=== PATIENT | male | born 1965 | race Two or more races ===

== ENCOUNTER 2024-06-27 11:45 | Inpatient (IN) | payer BC, MEDICARE, OTHER ==
[2024-06-28] MEDS ORDERED: MAGNESIUM HYDROXIDE 2,400 MG/30 ML CUP PO PRN (01:29)
[2024-06-28] MEDS ORDERED: MAG HYDROX/AL HYDROX/SIMETH 355 ML BOTTLE PO PRN (01:30)
[2024-06-28] MEDS ORDERED: diazePAM 5 MG TAB ONE ×3 (01:32→21:20)
[2024-06-28] MEDS ORDERED: OLANZapine 10 MG VIAL IM PRN (01:34)
[2024-06-28] MEDS: diazePAM 5 MG TAB PO PRN (02:00)
[2024-06-28] MEDS: OLANZapine 5 MG TAB PO PRN (04:38)
[2024-06-28] MEDS ORDERED: OLANZapine 5 MG TAB ONE ×2 (04:38→23:48)
[2024-06-28] MEDS: ACETAMINOPHEN TAB 325 MG TAB PO PRN (05:06)
[2024-06-28] MEDS ORDERED: ACETAMINOPHEN TAB 325 MG TAB ONE ×4 (05:06→20:10)
[2024-06-28] MEDS ORDERED: ARIPiprazole 10 MG TAB ONE (08:51)
[2024-06-28] MEDS ORDERED: busPIRone HCl 10 MG TAB ONE (08:51)
[2024-06-28] MEDS ORDERED: DULoxetine HCL 60 MG CAPSULE.DR PO ONE (08:52)
[2024-06-28] MEDS: ARIPiprazole 10 MG TAB PO SCH (09:51)
[2024-06-28] MEDS: ATORVASTATIN 10 MG TAB PO SCH (09:51)
[2024-06-28] MEDS: amLODIPine 5 MG TAB PO SCH (09:51)
[2024-06-28] MEDS: busPIRone HCl 10 MG TAB PO SCH (09:52)
[2024-06-28] MEDS: MELOXICAM 7.5 MG TAB PO SCH (09:52)
[2024-06-28] MEDS: LOSARTAN-HCTZ 50-12.5 MG 1 EACH TAB PO SCH (09:52)
[2024-06-28] MEDS: DULoxetine HCL 60 MG CAPSULE.DR PO SCH (09:52)
[2024-06-28] MEDS: METOPROLOL SUCCINATE (ER) 50 MG TAB.ER.24H PO SCH (09:53)
[2024-06-28] MEDS: LOSARTAN 50 MG TAB PO SCH (09:54)
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
[2024-06-29] MEDS ORDERED: ACETAMINOPHEN TAB 325 MG TAB ONE (03:04)
[2024-06-29] MEDS ORDERED: ARIPiprazole 10 MG TAB ONE (09:03)
[2024-06-29] MEDS ORDERED: diazePAM 5 MG TAB ONE (09:03)
--- NOTE | 2024-06-29 13:06 | P.PN ---
Progress Note - Text Progress Note Date: 06/29/24 Interval History: Patient was seen [wandering the hallways] and was directable and agreeable to speak with headline writer. Patient states he is doing great. He is very grandiose when speaking to headline writer, and very difficult to redirect. Patient states he does not need medications, he only needs weed and mushrooms. patient was very grandiose, poor judgment and insight. states that he does not and will not take medications. He is focused on having "millions of dollars" and wanting to pay everyone that has compassion. He makes several delusional statements, stating his plant maintenance worker is in the parking lot, ready to bring the hospital down. At this time patient denies any suicidal or homicidal ideations, intent or plan. Patient denies any auditory, visual hallucinations and denies any paranoia. Patient is refusing medications. Mental Status Exam: General Appearance: Patient appears to be midlly over weight, patient is currently seated in a wheelchair and is able to get around Behavior: Patient is very loud and attention seeking, demanding, difficult to redirect Speech: Patient's speech is fluent and pressured. he is demanding Mood/Affect: Mood is "great" affect is constricted and congruent Suicidality/Homicidality: Patient denies having any suicidal or homicidal ideation intent or plan. Perceptions: Patient denies any visual hallucinations and denies any auditory hallucinations Though content/process: There is evidence of delusional thought content, grandiose, and circumstantial. Memory and concentration: AOX3, grossly intact for the purposes of this session Judgment and insight: Impaired Assessment Bipolar disorder, severe manic episode, with psychotic features Hallucinogenic use disorder using mushrooms cannabis use disorder nicotine dependence Plan: -Patient continues to meet criteria for inpatient psychiatric admission for symptom stabilization and safety. Patient has not signed [adult voluntary form or medication consent, currently waiting for deferral/court date. -Medications: Invega 3mg bid for psychosis, Lithobid 450mg qhs for mood stabilization -When necessary Ativan and Haldol for agitation/aggression. -NRT - [nicotine patch] -SW on board for discharge planning. Encouraged the patient to participate in milieu. Currently awaiting deferral with it technical support specialist and court date.
[2024-06-29] MEDS: PALIPERIDONE 3 MG TAB.ER.24 PO SCH (13:33)
[2024-06-29] MEDS: LITHIUM CARBONATE ER 450 MG TABLET.ER PO SCH (21:59)
--- NOTE | 2024-06-29 23:03 | P.PN ---
Progress Note - Text Progress Note Date: 06/29/24 Attempted to see the patient in the mental health unit. Informed by the MHU RN that the patient is currently very manic and inappropriate for evaluation. Will attempt to see the patient tomorrow.
[2024-06-30] MEDS: NICOTINE 7MG/24HR PATCH TRANSDERM SCH (09:25)
--- NOTE | 2024-06-30 12:35 | P.PN ---
Progress Note - Text Progress Note Date: 06/30/24 Interval History: Patient was seen in his room, and was directable and agreeable to speak with engineering technical writer. Patient states he is doing great. He is continues to be grandiose when speaking to engineering technical writer, and very difficult to redirect. Patient has poor judgment and insight. He is very tangential, and has flight of ideas. 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 At this time patient denies any suicidal or homicidal ideations, intent or plan. Patient denies any auditory, visual hallucinations and denies any paranoia. Patient is refusing some medications. Mental Status Exam: General Appearance: Patient appears to be mildly over weight, patient is currently seated in a wheelchair and is able to get around Behavior: Patient is very loud and attention seeking, demanding, difficult to redirect Speech: Patient's speech is fluent and pressured. he is demanding Mood/Affect: Mood is "great" affect is constricted and congruent Suicidality/Homicidality: Patient denies having any suicidal or homicidal ideation intent or plan. Perceptions: Patient denies any visual hallucinations and denies any auditory hallucinations Though content/process: There is evidence of delusional thought content, grandiose, and circumstantial. Memory and concentration: AOX3, grossly intact for the purposes of this session Judgment and insight: Impaired Assessment Bipolar disorder, severe manic episode, with psychotic features Hallucinogenic use disorder using mushrooms cannabis use disorder nicotine dependence Plan: -Patient continues to meet criteria for inpatient psychiatric admission for symptom stabilization and safety. Patient has not signed adult voluntary form or medication consent, currently waiting for deferral/court date. -Medications: change Invega 3mg qd + 6mg qhs for psychosis, Lithobid 450mg qhs for mood stabilization -When necessary Ativan and Haldol for agitation/aggression. -NRT - [nicotine patch] -SW on board for discharge planning. Encouraged the patient to participate in milieu. Currently awaiting deferral with hot mill worker and court date.
[2024-06-30] MEDS: PALIPERIDONE 6 MG TAB.ER.24 PO SCH (20:58)
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
[2024-07-01] MEDS: PALIPERIDONE 3 MG TAB.ER.24 PO SCH ×2 (08:45→20:15)
--- NOTE | 2024-07-01 12:11 | P.PN ---
Progress Note - Text Progress Note Date: 07/01/24 Interval History: Patient was seen the rogel, and was directable and agreeable to speak with [facility]. Patient states he is doing good, but would be better if he were out of here.Abrasive Grader Helper spoke to patient about the court process. Patient is hard to redirect. He is continues to be grandiose when speaking to investigative writer. Patient has poor judgment and insight. He is very tangential, and has flight of ideas, this is mildly improving. He continues to talk his "80 thousand dollar rig that is out of hock", and sitting in his driveway. Less rambling today, mildly more directable. At this time patient denies any suicidal or homicidal ideations, intent or plan. Patient denies any auditory, visual hallucinations and denies any paranoia. Patient is compliant with medications, and denies any side effects. Mental Status Exam: General Appearance: Patient appears to be mildly over weight, patient is curr ently seated in a wheelchair and is able to get around Behavior: Patient is very loud and attention seeking, demanding, difficult to redirect, improving mildly Speech: Patient's speech is fluent and pressured. he is demanding, improving mildly Mood/Affect: Mood is "great" affect is constricted and congruent Suicidality/Homicidality: Patient denies having any suicidal or homicidal ideation intent or plan. Perceptions: Patient denies any visual hallucinations and denies any auditory hallucinations Though content/process: There is evidence of delusional thought content, grandiose, and circumstantial. Improving mildly. Memory and concentration: AOX3, grossly intact for the purposes of this session Judgment and insight: Impaired Assessment Bipolar disorder, severe manic episode, with psychotic features Hallucinogenic use disorder using mushrooms cannabis use disorder nicotine dependence Plan: -Patient continues to meet criteria for inpatient psychiatric admission for symptom stabilization and safety. Patient has not signed adult voluntary form or medication consent, currently waiting for deferral/court date. -Medications: Increase Invega 3mg qd + 9 mg qhs for psychosis, Lithobid 450mg qhs for mood stabilization -When necessary Ativan and Haldol for agitation/aggression. -NRT - [nicotine patch] -SW on board for discharge planning. Encouraged the patient to participate in milieu. Currently awaiting deferral with trust and estates attorney and court date Court is on 07/08
[2024-07-01] MEDS ORDERED: ACETAMINOPHEN TAB 325 MG TAB ONE (23:00)
[2024-07-01] MEDS ORDERED: OLANZapine 5 MG TAB ONE (23:00)
--- NOTE | 2024-07-02 11:23 | P.PN ---
Progress Note - Text Progress Note Date: 07/02/24 Interval History: Patient was seen today participating in group. He was agreeable to speak to mary silveira today in the in the hallway. He states that he is doing a bit better today, racing thoughts improving mildly since yesterday. 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 Claims that he has been speaking with his and "everything is good". Denies any depression or anxiety denies any side effects at this time. Claims that he still wants to work on sleep and is only sleeping about 4 or 5 hours a night. Less intrusive today. He did defer with his claim attorney. Less rambling today, mildly more directable. At this time patient denies any suicidal or homicidal ideations, intent or plan. Patient denies any auditory, visual hallucinations and denies any paranoia. Patient is compliant with medications, and denies any side effects. Mental Status Exam: General Appearance: Patient appears to be mildly over weight, patient is currently seated in a wheelchair and is able to get around Behavior: Patient is very loud and attention seeking, demanding, difficult to redirect, improving mildly Speech: Patient's speech is fluent and pressured. he is demanding, improving mildly Mood/Affect: Mood is "alright" affect is constricted and congruent, improving mildly Suicidality/Homicidality: Patient denies having any suicidal or homicidal ideation intent or plan. Perceptions: Patient denies any visual hallucinations and denies any auditory hallucinations Though content/process: There is evidence of delusional thought content, grandiose, and circumstantial. Improving mildly. Memory and concentration: AOX3, grossly intact for the purposes of this session Judgment and insight: Impaired, improving mildly Assessment Bipolar disorder, severe manic episode, with psychotic features Hallucinogenic use disorder using mushrooms cannabis use disorder nicotine dependence Plan: -Patient continues to meet criteria for inpatient psychiatric admission for symptom stabilization and safety. Patient has not signed adult voluntary form or medication consent -Medications: Continue Invega 3mg qd + 9 mg qhs for psychosis, increase [place] 300mg bid for mood stabilization. add trazodone 50 mg qhs for sleep/mood -When necessary Ativan and Haldol for agitation/aggression. -NRT - [nicotine patch] -SW on board for discharge planning. Encouraged the patient to participate in milieu. Patient deferred with his claim attorney on 07/01.
[2024-07-02] MEDS: traZODone HCL 50 MG TAB PO SCH (21:14)
[2024-07-02] MEDS: LITHIUM CARBONATE 300 MG CAP PO SCH (21:14)
--- NOTE | 2024-07-03 11:45 | P.PN ---
Progress Note - Text Progress Note Date: 07/03/24 Interval History: Patient was seen today participating in group. He was agreeable to speak to mary silveira today in the in the hallway. Patient continues to be somewhat hyperverbal, difficult to redirect at times during the interview, mildly disorganized thought process. He continues to speak about his money and has several thoughts of being discharged today. He minimizes his need for medications. He is showing mild improvement overall. Denies any depression or anxiety today. Claims that he only slept about 4 hours last night, states that he wants to sleep a bit more. He is denying any changes in his appetite at this time. Less rambling today, mildly more directable. At this time patient denies any suicidal or homicidal ideations, intent or plan. Patient denies any auditory, visual hallucinations and denies any paranoia. Patient is compliant with medications, and denies any side effects. Mental Status Exam: General Appearance: Patient appears to be mildly over weight, patient is currently seated in a wheelchair and is able to get around Behavior: Patient is very loud and attention seeking, less demanding, difficult to redirect, improving mildly Speech: Patient's speech is fluent and pressured. he is demanding, improving mildly Mood/Affect: Mood is "alright" affect is constricted and congruent, improving mildly Suicidality/Homicidality: Patient denies having any suicidal or homicidal ideation intent or plan. Perceptions: Patient denies any visual hallucinations and denies any auditory hallucinations Though content/process: There is evidence of delusional thought content, grandiose, and circumstantial. Improving mildly. Memory and concentration: AOX3, grossly intact for the purposes of this session Judgment and insight: Impaired, improving mildly Assessment Bipolar disorder, severe manic episode, with psychotic features Hallucinogenic use disorder using mushrooms cannabis use disorder nicotine dependence Plan: -Patient continues to meet criteria for inpatient psychiatric admission for symptom stabilization and safety. Patient has not signed adult voluntary form or medication consent -Medications: Invega 3mg qd + 9 mg qhs for psychosis, [place] 300mg bid for mood stabilization, consider increasing over the weekend if needed. increase trazodone 100 mg qhs for sleep/mood -When necessary Ativan and Haldol for agitation/aggression. -NRT - [nicotine patch] -SW on board for discharge planning. Encouraged the patient to participate in milieu. Patient deferred with his finance attorney on 07/01.
[2024-07-03] MEDS: traZODone HCL 100 MG TAB PO SCH (20:45)
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
--- NOTE | 2024-07-05 19:47 | P.PN ---
Progress Note - Text Progress Note Date: 07/05/24 Interval history: Patient was seen in the hallway and was agreeable to step into his room for a visit. When asked he described his mood as "awesome". He shared that he generally feels well and is ready to go home. He did not have any concerns or see the need for ongoing hospitalization. During the course of our conversation he was incorrectly recalling statements regarding plan for him to discharge tomorrow; these were clarified with him. He reports talking with his and and encouraging her to remain "on standby" as he might be able to leave the hospital at any time. He does not feel he has any ongoing need for care. At this time patient denies any suicidal or homicidal ideation, intent, or plan. Denies any auditory or visual hallucinations. Patient denies any side effects from the medications and has been compliant with meds. Mental status exam: General Appearance: Patient appears to be stated age is alert, directable, and cooperative. Behavior: No agitated behavior. Patient is energetic but redirectable Speech: Patient's speech is fluent though somewhat rapid. Mood/Affect: Mood is "awesome", affect is congruent and euthymic. Smiling. Suicidality/Homicidality: Patient denies having any suicidal or homicidal ideation intent or plan. Perceptions: Patient denies any auditory or visual hallucinations. Though content/process: There is no overt evidence of any delusional thought content and thought process is linear and goal-directed. Memory and concentration: AOX3, grossly intact for the purposes of this session Judgment and insight: Questionable, limited awareness of need for ongoing care Assessment/Plan: Continue with current diagnoses: Bipolar disorder, severe, manic episode with psychotic features; hallucinogenic/cannabis/nicotine use disorders Patient continues to meet criteria for inpatient psychiatric admission for symptom stabilization and safety. Deferred on 07/01/24. Patient will be maintained on current psychotropic medication regimen: Invega 3 mg QAM & 9 mg QHS for psychosis, lithium 300 mg BID for mood stabilization. Continue trazodone 100 mg daily. Monitor for medication compliance and for any psychotropic medication side effects. Will continue to monitor ongoing response to treatment. Encouraged participation in milieu.
--- NOTE | 2024-07-06 10:13 | P.PN ---
Progress Note - Text Progress Note Date: 07/06/24 Interval History: Patient was seen today in the hallway. He was agreeable to speak to health underwriter to day. Patient continues to be focused on discharge. He states he has his on standby to come get him. Fibrous Plasterer explained that he will not be discharged today, due to the holiday, and the inability to schedule follow up appointment. He is showing some improvement overall. He is less intrusive. Denies any depression or anxiety. Claims that he had some broken sleep last night, He is denying any c hanges in his appetite at this time. Less rambling today, more directable. At this time patient denies any suicidal or homicidal ideations, intent or plan. Patient denies any auditory, visual hallucinations and denies any paranoia. Patient is compliant with medications, and denies any side effects. Mental Status Exam: General Appearance: Patient appears to be mildly over weight, patient is curre ntly seated in a wheelchair and is able to get around Behavior: Patient is very loud and attention seeking, less demanding, difficult to redirect, improving mildly Speech: Patient's speech is fluent and pressured. he is demanding, improving mildly Mood/Affect: Mood is "real goodt" affect is constricted and congruent, improving mildly Suicidality/Homicidality: Patient denies having any suicidal or homicidal ideation intent or plan. Perceptions: Patient denies any visual hallucinations and denies any auditory hallucinations Though content/process: There is no evidence of delusional thought content, Memory and concentration: AOX3, grossly intact for the purposes of this session Judgment and insight: Impaired, improving mildly Assessment Bipolar disorder, severe manic episode, with psychotic features Hallucinogenic use disorder using mushrooms cannabis use disorder nicotine dependence Plan: -Patient continues to meet criteria for inpatient psychiatric admission for symptom stabilization and safety. Patient has not signed adult voluntary form or medication consent -Medications: Invega 3mg qd + 9 mg qhs for psychosis, [place] 300mg bid for mood stabilization, increase trazodone 150 mg qhs for sleep/mood -When necessary Ativan and Haldol for agitation/aggression. -NRT - [nicotine patch] -SW on board for discharge planning. Encouraged the patient to participate in milieu. Patient deferred with his digital marketing strategist on 07/01. Discharge possibly Saturday, if patient continues to improve
[2024-07-06] MEDS: traZODone HCL 50 MG TAB PO SCH (20:54)
[2024-07-07 07:26] VITALS: BP 112/76; PULSE 58; RESP 18; TEMP 97.7
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
[2024-07-07] MEDS: TETRAHYDROZOLINE 0.05% OPHTH DROPS 15 ML BTL BOTH EYES PRN (12:18)
== END 2024-07-07 13:05 | disposition home or self-care (01) | DRG 885 ==
LOC: 3MHU 11:45
PROVIDERS: ADMIT Psychiatry & Neurology Psychiatry; ATTEND Psychiatry & Neurology Psychiatry
DX: F31.2 Bipolar disorder, current episode manic severe with psychotic features (principal); G82.20 Paraplegia, unspecified; F41.9 Anxiety disorder, unspecified; M62.462 Contracture of muscle, left lower leg; E78.5 Hyperlipidemia, unspecified; M62.461 Contracture of muscle, right lower leg; F12.10 Cannabis abuse, uncomplicated; F16.10 Hallucinogen abuse, uncomplicated; F17.200 Nicotine dependence, unspecified, uncomplicated; V29.99XS Rider (driver) (passenger) of other motorcycle injured in unspecified traffic accident, sequela; I10 Essential (primary) hypertension; Z79.899 Other long term (current) drug therapy; Z86.61 Personal history of infections of the central nervous system; Z53.20 Procedure and treatment not carried out because of patient's decision for unspecified reasons; Z71.41 Alcohol abuse counseling and surveillance of alcoholic; Z71.51 Drug abuse counseling and surveillance of drug abuser; Z88.0 Allergy status to penicillin